=== PATIENT | female | born 1990 | race Caucasian/White ===

== ENCOUNTER 2018-04-07 20:30 | Emergency (ER) | payer OTHER ==
[~2018-04-07] VITALS: Ht 172.7 cm; Wt 70.3 kg
[~2018-04-07 20:30] MED LIST: ACETAMINOPHEN325 M1 PO; AMOX TR-K600 MG/5 M PO; BACTRIM DS TAB1 EACH PO; CIPROFLOXACIN500 M1 PO; COLACE 100 MG100 MG PO; IBUPROFEN 800800 M1 PO; MACRODANTIN100 MG PO; MIRALAX255 GM PO; MIRENA; OXYIR 5 MG CAPSU5 M1 PO; PRENATAL; PROBIOTIC1 EAC1; REGLAN 10 MG TA10 M1 PO; ULTRAM 50MG TAB50 MG PO; ZOFRAN4 MG PO
[2018-04-07] MEDS ORDERED: AMOXICILLIN 50500 MG PO (21:40)
[2018-04-07] MEDS ORDERED: LIDOCAINE VISC100 ML PO (21:41)
[2018-04-07 21:52] VITALS: BP 120/80
== END 2018-04-07 21:52 | disposition home or self-care (01) ==
LOC: M.ERS 20:30
DX: J02.9 Acute pharyngitis, unspecified (principal); F17.210 Nicotine dependence, cigarettes, uncomplicated

== ENCOUNTER 2018-11-21 20:22 | Emergency (ER) | payer BC ==
[~2018-11-21] VITALS: Ht 172.7 cm; Wt 77.1 kg
[~2018-11-21 20:22] MED LIST changes: +AMOXICILLIN 50500 MG PO; +LIDOCAINE VISC100 ML PO
[2018-11-21] MEDS ORDERED: MIRENA1 EACH INTRAUTERI (20:35)
[2018-11-21 21:14] LABS: ABSOLUTE BASOPHILS 0.1 thou/uL (0.0-0.2); ABSOLUTE EOSINOPHILS 0.1 thou/uL (0.0-0.7); ABSOLUTE LYMPHOCYTES 2.7 thou/uL (0.8-5.3); ABSOLUTE MONOCYTES 0.7 thou/uL (0.0-1.2); ABSOLUTE NEUTROPHILS 4.6 thou/uL (1.6-8.1); BASOPHILS 0.9 %; EOSINOPHILS 1.3 %; HEMATOCRIT 38.5 % (37.0-47.0); HEMOGLOBIN 13.1 gm/dL (12.0-15.0); LYMPHOCYTES 33.2 %; MCHC 34.1 g/dL (28.0-37.0); MCV 93.8 fL (80.0-100.0); MONOCYTES 8.1 %; MPV 9.1 fl. (7.2-11.1); NUCLEATED RBCS 0 /100WBC; PLATELET COUNT* 201 thou/uL (150-400); POLYS 56.5 %; RDW-CV 13.1 % (10.5-14.5); WBC 8.2 thou/uL (4.0-11.0)
[2018-11-21 21:22] LABS: CREATININE 0.7 mg/dL (0.6-1.3); POTASSIUM 3.4 mmol/L (3.5-5.1)
[2018-11-21 21:30] LABS: URINE BILIRUBIN NEGATIVE (Negative); URINE BLOOD 1+ (Negative); URINE CLARITY CLEAR; URINE COLOR YELLOW; URINE GLUCOSE-RANDOM NEGATIVE (Negative); URINE KETONES NEGATIVE (Negative); URINE LEUKOCYTES-REFLEX 1+ (Negative); URINE NITRITE-REFLEX NEGATIVE (Negative); URINE PROTEIN NEGATIVE (Negative); URINE UROBILINOGEN 0.2 E.U./dl (0.2-1.0)
[2018-11-21 21:32] LABS: TOTAL BILIRUBIN 0.3 mg/dL (<0.1-1.0); TOTAL PROTEIN 7.4 g/dL (6.4-8.2)
[2018-11-21 21:36] LABS: CASTS None Seen /LPF (None Seen); CRYSTALS None Seen /LPF (None Seen); SQUAMOUS 4-10 Moderate /LPF (0-3); URINE RBC 0-2 Rare /HPF (0-2); URINE WBC-REFLEX 6-15 Few /HPF (0-5)
[2018-11-21] MEDS ORDERED: LASIX 20 MG TAB20 MG PO ×2 (22:10)
[2018-11-21] MEDS ORDERED: KLOR-CON 1010 MEQ PO (22:10)
[2018-11-21] MEDS ORDERED: MACROBID 100 M100 M1 PO (22:13)
[2018-11-21 22:37] VITALS: BP 137/77
== END 2018-11-21 22:37 | disposition home or self-care (01) ==
LOC: M.ERS 20:22
PROVIDERS: Emergency Medicine
DX: R60.0 Localized edema (principal); Z90.49 Acquired absence of other specified parts of digestive tract